=== PATIENT | female | born 1985 | race Caucasian/White ===

== ENCOUNTER 2021-04-29 08:02 | Emergency (ER) | payer BC ==
[~2021-04-29] VITALS: Ht 154.9 cm; Wt 69.0 kg
[2021-04-29 08:20] VITALS: BP 139/84
== END 2021-04-29 10:52 | disposition home or self-care (01) ==
LOC: ER 08:04
DX: L25.8 Unspecified contact dermatitis due to other agents (principal); T44.995A Adverse effect of other drug primarily affecting the autonomic nervous system, initial encounter; Z87.891 Personal history of nicotine dependence; Z88.8 Allergy status to other drugs, medicaments and biological substances; Y92.89 Other specified places as the place of occurrence of the external cause
CPT/HCPCS: 99282